=== PATIENT | male | born 1980 | race American Indian/Alaskan Native ===

== ENCOUNTER 2017-10-12 07:11 | Emergency (ER) | payer SELFPAY ==
[2017-10-12 07:27] VITALS: O2SAT 100
--- NOTE | 2017-10-12 08:05 | C.PDOC ---
History Of Present Illness 37 y/o male c/o abdominal pain earlier today 'from a hernia', (no dx of hernia, no ab sx), which has now resolved. pt admits to drinking most days and drank last night and used other drugs. pt sts he has been told he has high bp but not on medication. pt sts he was in [facility] in the last few days for an unclear reason. pt is a vague and poor historian. denies cp and sob. denies psychiatric hx. denies hi, si and ah. Time Seen by Provider: 10/12/17 07:41 Chief Complaint (Nursing): Abdominal Pain Past Medical History Reviewed: Historical Data, Nursing Documentation, Vital Signs Vital Signs: Last Vital Signs Temp 98.7 F 10/12/17 10:55 Pulse 92 H 10/12/17 10:55 Resp 16 10/12/17 10:55 BP 154/99 H 10/12/17 10:55 Pulse Ox 100 10/12/17 11:05 - Medical History PMH: Hiatal Hernia Family History: States: No Known Family Hx - Social History Hx Alcohol Use: Yes Hx Substance Use: Yes - Immunization History Hx Influenza Vaccination: No Review Of Systems Cardiovascular: Negative for: Chest Pain Respiratory: Negative for: Shortness of Breath Gastrointestinal: Positive for: Abdominal Pain Musculoskeletal: Negative for: Back Pain Neurological: Negative for: Weakness, Numbness Physical Exam - Physical Exam Appears: Non-toxic, No Acute Distress Skin: Normal Color, Warm, Dry, No Diaphoretic, No Rash, No Jaundice Head: Normacephalic Eye(s): bilateral: PERRL Nose: Normal Oral Mucosa: Moist Neck: Normal ROM Cardiovascular: Rhythm Regular (Tachycardia), No Murmur Respiratory: Normal Breath Sounds, No Accessory Muscle Use Gastrointestinal/Abdominal: Soft, Tenderness (Mild, left pelvic), No Guarding, No Rebound Extremity: Normal ROM, No Deformity, No Swelling Neurological/Psych: Oriented x3, Normal Speech ED Course And Treatment - Laboratory Results Result Diagrams: 10/12/17 08:20 10/12/17 08:20 O2 Sat by Pulse Oximetry: 100 (RA) Pulse Ox Interpretation: Normal Medical Decision Making Medical Decision Making: Plan: * EKG * Bloodwork * UA * Chest X-Ray * Reassess and Disposition * 11 am pt with no abdominal pain at this time. re-exam, soft, nd. nt. pt found to have lll infiltrate on cxr, non toxic appearing. will d/c with zpak, recommend detox; utox shows polysubstance abuse. pt's bp decreased; possibly due to cocaine and amphetamine use. Disposition Counseled Patient/Family Regarding: Studies Performed, Diagnosis, Need For Followup, Rx Given - Disposition Referrals: [facility] [Outside] Disposition: HOME/ ROUTINE Disposition Time: 11:09 Condition: GOOD Additional Instructions: Please take antibiotics as prescribed for pneumonia. Follow up in medical clinic or with your own doctor in a few days. Recommmend detox program for polysubstance abuse. Prescriptions: Azithromycin [Z-Wilber] 250 mg PO DAILY #6 tab Instructions: Pneumonia, Adult (DC), Polysubstance Abuse (DC) Forms: [facility] (Pashto), General Discharge Instructions - Clinical Impression Clinical Impression: Pneumonia, Polysubstance abuse - Scribe Statement The provider has reviewed the documentation as recorded by the Scribe (Olvin Ozuna) All medical record entries made by the Scribe were at my direction and personally dictated by me. I have reviewed the chart and agree that the record accurately reflects my personal performance of the history, physical exam, medical decision making, and the department course for this patient. I have also personally directed, reviewed, and agree with the discharge instructions and disposition.
--- NOTE | 2017-10-12 08:19 | RAD ---
HISTORY: abd pain COMPARISON: No prior. TECHNIQUE: Chest PA and lateral FINDINGS: LUNGS: Left lower lobe infiltrate. Followup advised to exclude developing pneumonia. No other abnormal opacity elsewhere. PLEURA: No significant pleural effusion identified. No pneumothorax apparent. CARDIOVASCULAR: Normal. OSSEOUS STRUCTURES: No significant abnormalities. VISUALIZED UPPER ABDOMEN: Normal. OTHER FINDINGS: None. IMPRESSION: Left lower lobe infiltrate. Followup advised.
[2017-10-12 08:23] LABS: BASO # 0.1 K/uL (0.0-0.2); BASO % 0.5 % (0.0-2.0); EOS % 0.1 % (0.0-4.0); HEMOGLOBIN 13.1 g/dL (12.0-18.0); LYMPH # 1.2 K/uL (1.0-4.3); LYMPH % 10.7 % (20.0-40.0); MEAN CELL VOLUME 90.2 fL (80.0-94.0); MEAN CORPUSCULAR HEMOGLOBIN 30.4 pg (27.0-31.0); MEAN CORPUSCULAR HGB CONC 33.7 g/dL (33.0-37.0); MEAN PLATELET VOLUME 8.6 fL (7.2-11.7); MONO # 0.6 K/uL (0.0-0.8); MONO % 4.9 % (0.0-10.0); NEUT # 9.4 K/uL (1.8-7.0); NEUT % 83.8 % (50.0-75.0); RBC 4.3 Mil/uL (4.40-5.90); RED CELL DISTRIBUTION WIDTH 13.7 % (11.5-14.5); WHITE BLOOD COUNT 11.2 K/uL (4.8-10.8)
[2017-10-12 08:30] LABS: URINE BILIRUBIN NEGATIVE (NEGATIVE); URINE BLOOD NEGATIVE (NEGATIVE); URINE CLARITY Clear (Clear); URINE COLOR Yellow (YELLOW); URINE GLUCOSE (UA) NORMAL (Normal); URINE LEUKOCYTE ESTERASE NEG Leu/uL (Negative); URINE PROTEIN 1+ mg/dL (NEGATIVE)
[2017-10-12 08:41] LABS: BARBITURATES, UR NEGATIVE (NEGATIVE); BENZODIAZEPINES, UR NEGATIVE (NEGATIVE); OPIATES, UR NEGATIVE (NEGATIVE); PHENCYCLIDINE, UR NEGATIVE (NEGATIVE)
[2017-10-12 08:41] LABS: ALB/GLOB RATIO 1.2 (1.0-2.1); ALBUMIN 4.3 g/dL (3.5-5.0); ALT/SGPT 35 U/L (21-72); AST/SGOT 46 U/L (17-59); BLOOD UREA NITROGEN 18 mg/dL (9-20); CALCIUM 9.3 mg/dl (8.6-10.4); GFR AFRICAN-AMERICAN > 60; GFR NON-AFRICAN AMERICAN > 60; LIPASE 96 U/L (23-300)
[2017-10-12] MEDS ORDERED: Sodium Chloride 0.9% 1,000 ML IV ONE (10:22)
[2017-10-12 11:02] VITALS: BP 154/99; PULSE 92; RESP 16; TEMP 98.7
--- NOTE | 2017-10-13 21:56 | CARD ---
APPROVED REPORT EKG Measurement Heart [id number] <Conclusion> Normal sinus rhythm Normal ECG
== END 2017-10-12 11:29 | disposition home or self-care (01) ==
LOC: C.ER 07:11
DX: J18.9 Pneumonia, unspecified organism (principal); F19.10 Other psychoactive substance abuse, uncomplicated
CPT/HCPCS: 71046; 80053; 81001; 83690; 85025; 93005; 99285; G0480

== ENCOUNTER 2017-10-13 00:06 | Emergency (ER) | payer SELFPAY ==
--- NOTE | 2017-10-13 00:46 | C.PDOC ---
History Of Present Illness 37 year old male presents to the ED requesting a place to stay for the night. Patient was found outside a store sleeping and was brought in by EMS. Patient admits to drinking alcohol today. Patient denies SI/HI, hallucinations, CP, SOB , palpitations. Time Seen by Provider: 10/13/17 00:45 Chief Complaint (Nursing): Medical Clearance History Per: Patient History/Exam Limitations: intoxication Onset/Duration Of Symptoms: Hrs Current Symptoms Are (Timing): Still Present Recent travel outside of the [place]: No Additional History Per: Patient, EMS Past Medical History Reviewed: Historical Data, Nursing Documentation, Vital Signs Vital Signs: Last Vital Signs Temp 98.1 F 10/13/17 02:48 Pulse 82 10/13/17 02:48 Resp 18 10/13/17 02:48 BP 149/91 H 10/13/17 02:48 Pulse Ox 96 10/13/17 02:48 - Medical History PMH: Hiatal Hernia Surgical History: No Surg Hx Family History: States: Unknown Family Hx - Social History Hx Alcohol Use: Yes Hx Substance Use: Yes - Immunization History Hx Influenza Vaccination: No Review Of Systems Constitutional: Negative for: Fever, Chills Cardiovascular: Negative for: Chest Pain Respiratory: Negative for: Shortness of Breath Gastrointestinal: Negative for: Abdominal Pain Skin: Negative for: Rash Psych: Negative for: Depression, Suicidal ideation Physical Exam - Physical Exam Appears: Non-toxic, No Acute Distress Skin: Warm, Dry Head: Normacephalic Eye(s): bilateral: Normal Inspection Nose: No Discharge Oral Mucosa: Moist Neck: Normal ROM, Supple Chest: Symmetrical Cardiovascular: Rhythm Regular, No Murmur Respiratory: No Rales, No Rhonchi, No Wheezing Gastrointestinal/Abdominal: Soft, No Tenderness, No Guarding, No Rebound Extremity: Normal ROM Neurological/Psych: Oriented x3 Gait: Steady ED Course And Treatment O2 Sat by Pulse Oximetry: 99 (On RA) Pulse Ox Interpretation: Normal Reevaluation Time: 05:30 Reassessment Condition: Improved Disposition Counseled Patient/Family Regarding: Studies Performed, Diagnosis, Need For Followup - Disposition Referrals: [facility] [Outside] [facility] [Outside] Disposition: HOME/ ROUTINE Disposition Time: 00:46 Condition: FAIR Forms: [facility] (Peruvian), General Discharge Instructions - Clinical Impression Clinical Impression: Homeless, Medical assessment - Scribe Statement The provider has reviewed the documentation as recorded by the Scribe Ronal Fernandez All medical record entries made by the Scribe were at my direction and personally dictated by me. I have reviewed the chart and agree that the record accurately reflects my personal performance of the history, physical exam, medical decision making, and the department course for this patient. I have also personally directed, reviewed, and agree with the discharge instructions and disposition.
[2017-10-13 02:49] VITALS: PULSE 82; RESP 18
[2017-10-13 05:34] VITALS: BP 138/82; TEMP 98.2; O2SAT 96
== END 2017-10-13 05:34 | disposition home or self-care (01) ==
LOC: C.ER 00:06
DX: Z00.00 Encounter for general adult medical examination without abnormal findings (principal); Z59.0 Homelessness